=== PATIENT | female | born 1950 | race Caucasian/White ===

== ENCOUNTER 2016-06-18 16:15 | Outpatient (RCR) | payer OTHER | END 2016-06-26 | disposition home or self-care (01) | LOC: PTY 16:15 | DX: M25.561 Pain in right knee (principal); G89.29 Other chronic pain; Z88.2 Allergy status to sulfonamides | CPT/HCPCS: 97110; 97140; 97162; G0283 ==

== ENCOUNTER 2016-06-28 10:23 | Outpatient (RCR) | payer OTHER | END 2016-07-27 | disposition home or self-care (01) | LOC: PTY 10:23 | DX: M25.561 Pain in right knee (principal); G89.29 Other chronic pain; Z88.2 Allergy status to sulfonamides; Z88.8 Allergy status to other drugs, medicaments and biological substances | CPT/HCPCS: 97110; 97140; G0283 ==

== ENCOUNTER 2016-08-02 13:40 | Outpatient (RCR) | payer OTHER | END 2016-08-26 | disposition home or self-care (01) | LOC: PTY 13:40 | DX: M25.561 Pain in right knee (principal); G89.29 Other chronic pain | CPT/HCPCS: 97110; 97140; G0283 ==

== ENCOUNTER 2016-09-05 10:00 | Outpatient (RCR) | payer OTHER | END 2016-09-26 | disposition home or self-care (01) | LOC: PTY 10:00 | DX: M25.561 Pain in right knee (principal); G89.29 Other chronic pain; Z88.2 Allergy status to sulfonamides; Z88.8 Allergy status to other drugs, medicaments and biological substances | CPT/HCPCS: 97110; 97140; G0283 ==

== ENCOUNTER 2016-09-28 15:50 | Outpatient (RCR) | payer OTHER | END 2016-10-26 | disposition home or self-care (01) | LOC: PTY 15:50 | DX: M25.561 Pain in right knee (principal); G89.29 Other chronic pain | CPT/HCPCS: 97110; 97140; G0283 ==